=== PATIENT | male | born 1940 | race Caucasian/White ===

== ENCOUNTER 2021-05-17 09:05 | Inpatient (IN) | payer MEDICARE, OTHER ==
[~2021-05-17] VITALS: Ht 188 cm; Wt 93.0 kg
--- NOTE | 2021-05-17 09:05 | NUR ---
BIBRA FROM HOME C/O CHEST PAIN, DIRECTED TO ER BED 1, MONITOR APPLIED AND EKG, AWAITING MD FAGAN.
[2021-05-17 09:20] LABS: BASOPHILS % (AUTO) 0.8 % (0.0-2.0); EOSINOPHILS % (AUTO) 2.8 % (0.0-6.0); HEMATOCRIT 40 % (39-51); HEMOGLOBIN 13.9 g/dL (13.5-17.5); LYMPHOCYTES # (AUTO) 1.8 K/uL (0.8-4.8); LYMPHOCYTES % (AUTO) 35.1 % (20.0-44.0); MEAN CORPUSCULAR HGB CONC 35 g/dl (31.0-36.0); MEAN CORPUSCULAR VOLUME 99 fL (80-96); MONOCYTES # (AUTO) 0.6 K/uL (0.1-1.30); MONOCYTES % (AUTO) 12.5 % (2.0-12.0); NEUTROPHILS # (AUTO) 2.5 K/uL (1.8-8.9); NEUTROPHILS % (AUTO) 48.8 % (43.0-81.0); PLATELET COUNT (AUTO) 152 K/uL (150-450); RED BLOOD CELL COUNT(AUTO) 4.03 MIL/uL (4.5-6.0)
[2021-05-17] MEDS ORDERED: ONDANSETRON HCL/PF 4 MG/2 ML VIAL ONE (09:20)
[2021-05-17] MEDS ORDERED: MORPHINE SULFATE INJ 4 MG/ML DISP.SYRIN ONE (09:21)
[2021-05-17] MEDS ORDERED: ERGO500093 PO ×2 (09:23→09:40)
[2021-05-17] MEDS ORDERED: CELE100C98 PO (09:23)
[2021-05-17] MEDS ORDERED: FURO20TA4 PO (09:23)
[2021-05-17] MEDS ORDERED: OLME20TA23 PO (09:23)
[2021-05-17] MEDS ORDERED: PRAM0.5T11 PO (09:23)
[2021-05-17] MEDS ORDERED: ROSU40TA23 PO (09:23)
[2021-05-17] MEDS ORDERED: ASPI-1420 PO (09:23)
[2021-05-17] MEDS ORDERED: LANS30CA56 PO ×2 (09:23→09:39)
[2021-05-17 09:27] LABS: CARBON DIOXIDE 23 mmol/L (21-32); CHLORIDE 105 mmol/L (98-107); CREATININE 1.1 mg/dL (0.6-1.3); GLUCOSE 122 mg/dL (74-106); POTASSIUM 3.2 mmol/L (3.5-5.1); SODIUM SERUM 140 mmol/L (136-145); UREA NITROGEN, BLOOD 21 mg/dL (7-18)
[2021-05-17] MEDS ORDERED: ONDANSETRON HCL/PF 4 MG/2 ML VIAL IV ONE (09:30)
[2021-05-17] MEDS ORDERED: MORPHINE SULFATE INJ 2 MG/ML DISP.SYRIN IV ONE (09:30)
--- NOTE | 2021-05-17 09:30 | NUR ---
BIB RA 79 FROM HOME CC CP 45 LABORER PIE BAKERY NON RADIATING 4/10 PAIN.
[2021-05-17] MEDS ORDERED: CLOP75TA15 PO (09:39)
[2021-05-17] MEDS ORDERED: METO25TA4 PO (09:39)
--- NOTE | 2021-05-17 09:39 | NUR ---
MOVE SHEET SUBMITTED AND CALLED FOR TELE BED.
--- NOTE | 2021-05-17 09:44 | NUR ---
SEEN BY DOCTOR AND ORDERS CARRIED OUT.
--- NOTE | 2021-05-17 09:46 | NUR ---
[facility] CALLED CHEMIST PHARMACEUTICAL PAGED.
[2021-05-17] MEDS ORDERED: ERGOCALCIFEROL (VITAMIN D 2) 50,000 UNIT CAPSULE PO SCH (10:00)
[2021-05-17] MEDS ORDERED: POTASSIUM CHLORIDE 20 MEQ TAB.PRT.SR PO ONE ×3 (10:00→20:00)
[2021-05-17] MEDS ORDERED: ACETAMINOPHEN 325 MG TABLET PO PRN (10:00)
[2021-05-17] MEDS ORDERED: Z GUARD REMEDY 2 OZ OINT TP PRN ×2 (10:00→12:45)
[2021-05-17] MEDS ORDERED: MORPHINE SULFATE INJ 2 MG/ML DISP.SYRIN IV PRN ×2 (10:00→12:45)
[2021-05-17] MEDS ORDERED: ONDANSETRON HCL/PF 4 MG/2 ML VIAL IVP PRN ×2 (10:00→12:45)
[2021-05-17] MEDS ORDERED: ZOLPIDEM TARTRATE 5 MG TABLET PO PRN ×2 (10:00→12:45)
[2021-05-17] MEDS ORDERED: MAGNESIUM HYDROXIDE 30 ML UDC PO PRN ×2 (10:00→12:45)
[2021-05-17] MEDS ORDERED: MAG HYDROX/AL HYDROX/SIMETH 30 ML UDC PO PRN ×2 (10:00→12:45)
[2021-05-17] MEDS ORDERED: NITROGLYCERIN 0.4 MG/TAB BOTTLE SL PRN ×2 (10:00→12:45)
--- NOTE | 2021-05-17 10:01 | NUR ---
VERBALIZED FEELING BETTER, WAITING FOR RESULTS, SON AT BEDSIDE
--- NOTE | 2021-05-17 10:11 | NUR ---
PATIENT AND SON INFORMED OF POC.
--- NOTE | 2021-05-17 10:18 | NUR ---
LAB CALLED FOR COVID RESULT SPOKE WITH SUDA ETA OF 30MINS
--- NOTE | 2021-05-17 10:30 | NUR ---
GAVE REPORT TO CHARITY GUTIÉRREZ FOR JASPER
--- NOTE | 2021-05-17 10:32 | NUR ---
DR BUTLER AT BEDSIDE WANTS CTA DONE BEFORE PATIENT CAN GO UP
--- NOTE | 2021-05-17 10:41 | NUR ---
covid results negative called stevedoring supervisor for bed
[2021-05-17] MEDS ORDERED: IOHEXOL-350 100 ML VIAL IV ONE (10:45)
[2021-05-17] MEDS ORDERED: IV NS 0.9% 250 ML IV ONE (10:45)
[2021-05-17] MEDS ORDERED: CT SWABBABLE VALVE TRANS SET 1 EA INFUS.SET MC ONE (10:45)
--- NOTE | 2021-05-17 12:02 | NUR ---
F/U CTA RESULT SPOKE WITH [place]
[2021-05-17] MEDS ORDERED: ACETAMINOPHEN 650 MG/20.3 ML UDC ONE (12:16)
[2021-05-17] MEDS ORDERED: ACETAMINOPHEN 325 MG TABLET ONE (12:18)
--- NOTE | 2021-05-17 12:41 | NUR ---
GOT BED 320-2
--- NOTE | 2021-05-17 12:47 | NUR ---
SPEEDOMETER INSPECTORBRAKE MACHINE OPERATOR NOTE RECEIVED PATIENT FROM ER. PATIENT CAME FROM HOME, COMPLAINING OF CHEST PAIN. PATIENT IS A/O X3. YORUBA SPEAKING BUT UNDERSTANDS ARABIC. VITALS 124/70 HR 55 TEMP 97.3 O2 SAT 98%. STABLE ON ROOM AIR - NO SOB OR DISTRESS/DISCOMFORT NOTED. PATIENT STATES NO CHEST PAIN AT THIS TIME. SKIN IS INTACT. IV ACCESS TO RIGHT AC #18 - S/L. EXTERNAL TELE MONITOR READS SINUS KENDRA - 55 TO 60S. PATIENT IS AMBULATORY. BRP. PATIENT ORIENTED TO ROOM. SAFETY MEASURES IN PLACE. CALL LIGHT WITHIN REACH. WILL CONTINUE TO MONITOR.
[2021-05-17 13:30] VITALS: BP 124/70
[2021-05-17 16:00] VITALS: BP 111/64
--- NOTE | 2021-05-17 18:50 | NUR ---
ADON CLOSING NOTE PATIENT CURRENTLY LYING IN BED, AWAKE AND WATCHING TV. ADMIT FROM ER. A/O X3. SPANISH SPEAKING BUT UNDERSTANDS MONGOLIAN WELL. STABLE ON ROOM AIR - NO SOB OR DISTRESS/DISCOMFORT NOTED. PATIENT STATES NO CHEST PAIN AT THIS TIME. IV ACCESS TO RIGHT AC #18 - S/L. EXTERNAL TELE MONITOR READS SINUS KENDRA - 60. PATIENT IS AMBULATORY. BRP. SAFETY MEASURES IN PLACE. CALL LIGHT WITHIN REACH. WILL ENDORSE TO GAS ANALYST NURSE FOR JASPER.
[2021-05-17 20:00] VITALS: BP 101/55
[2021-05-18] VITALS: BP 110/65
[2021-05-18 04:00] VITALS: BP 140/80
--- NOTE | 2021-05-18 06:17 | NUR ---
DROP FORGER HELPER NOTES AWAKE & RESPONSIVE. NOT IN ANY DISTRESS. NO SOB NOTED. DENIES ANY PAIN OR DISCOMFORT AT THIS TIME. ON TELE SR @ 60 WITH IV-HL PATENT & INTACT. CALL LIGHT WITHIN REACH. BED IN LOWEST POSITION. SR UP X 2 FOR SAFETY. WILL ENDORSE TO NEXT SHIFT.
[2021-05-18] MEDS ORDERED: PANTOPRAZOLE 40 MG TABLET.DR PO SCH ×2 (07:30)
--- NOTE | 2021-05-18 07:49 | NUR ---
RN OPENING NOTE PATIENT RECEIVED IN CHAIR AO X 3, ABLE TO RESPONDS ALL STIMULI. NO S/S OF DISTRESS OBSERVED. SKIN IS WARM TO TOUCH, KEEP CLEAN/DRY, INTACT IV SITE. RESPIRATORY EVEN AND UNLABORED ON ROOM AIR. KEEP ELEVATED HOB FOR ENSURE AIRWAY AND ASPIRATION PRECAUTION, ALSO LOWEST BED POSITION FOR SAFETY. CALL LIGHT WITHIN REACH, WILL CONTINUE TO MONITOR.
[2021-05-18 08:28] LABS: BASOPHILS % (AUTO) 0.5 % (0.0-2.0); HEMATOCRIT 40 % (39-51); HEMOGLOBIN 13.7 g/dL (13.5-17.5); LYMPHOCYTES # (AUTO) 1.1 K/uL (0.8-4.8); LYMPHOCYTES % (AUTO) 27.5 % (20.0-44.0); MEAN CORPUSCULAR HGB CONC 35 g/dl (31.0-36.0); MEAN CORPUSCULAR VOLUME 100 fL (80-96); MONOCYTES # (AUTO) 0.3 K/uL (0.1-1.30); MONOCYTES % (AUTO) 6.3 % (2.0-12.0); NEUTROPHILS # (AUTO) 2.5 K/uL (1.8-8.9); NEUTROPHILS % (AUTO) 61.7 % (43.0-81.0); PLATELET COUNT (AUTO) 133 K/uL (150-450); RED BLOOD CELL COUNT(AUTO) 3.97 MIL/uL (4.5-6.0)
[2021-05-18 08:39] LABS: ALBUMIN 3.6 g/dL (3.4-5.0); BILIRUBIN,TOTAL 0.8 mg/dL (0.2-1.0); CALCIUM, SERUM 8.7 mg/dL (8.5-10.1); MAGNESIUM 1.9 mg/dL (1.8-2.4); PHOSPHORUS 2.8 mg/dL (2.5-4.9); POTASSIUM 4.7 mmol/L (3.5-5.1); TOTAL PROTEIN, SERUM 6.8 g/dL (6.4-8.2)
[2021-05-18 08:51] VITALS: BP 130/74
[2021-05-18] MEDS ORDERED: CLOPIDOGREL BISULFATE 75 MG TABLET PO SCH ×2 (09:00)
[2021-05-18] MEDS ORDERED: METOPROLOL SUCCINATE 25 MG TAB.SR.24H PO SCH ×2 (09:00)
[2021-05-18] MEDS ORDERED: ASPIRIN EC 81 MG TABLET.DR PO SCH ×2 (09:00)
--- NOTE | 2021-05-18 10:36 | NUR ---
POTASSIUM LEVEL 3.2 THIS MORNING, NEW ORDER POTASSIUM 20 mEq PO X 1, NOTED AND CARRY OUT. Addendum: 05/18/21 at 1049 by JHONNY FRANCES RN ERROR Addendum: 05/18/21 at 1109 by JHONNY FRANCES RN ERROR
[2021-05-18] MEDS ORDERED: POTASSIUM CHLORIDE 20 MEQ TAB.PRT.SR PO ONE (11:00)
[2021-05-18] MEDS ORDERED: METOPROLOL TARTRATE INJ 5 MG/5 ML AMPUL ONE (13:17)
[2021-05-18] MEDS ORDERED: NITROGLYCERIN 0.4 MG/TAB BOTTLE ONE (13:17)
[2021-05-18] MEDS ORDERED: CT SWABBABLE VALVE TRANS SET 1 EA INFUS.SET MC ONE (13:24)
[2021-05-18] MEDS ORDERED: IOHEXOL-350 100 ML VIAL IV ONE (13:24)
[2021-05-18] MEDS ORDERED: IV NS 0.9% 250 ML IV ONE (13:25)
[2021-05-18] MEDS ORDERED: METOPROLOL TARTRATE INJ 5 MG/5 ML AMPUL IVP PRN (13:30)
[2021-05-18] MEDS ORDERED: IV NS 0.9% 500 ML IV PRN (13:30)
[2021-05-18] MEDS ORDERED: NITROGLYCERIN 0.4 MG/TAB BOTTLE SL ONE (13:30)
[2021-05-18 13:35] VITALS: BP 118/55
--- NOTE | 2021-05-18 16:43 | NUR ---
PATIENT D/C TO HOME, GIVEN DISCHARGE INSTRUCTION TO FAMILY MEMBER AND VERBALLY UNDERSTAND. PATIENT DENIES DISTRESS, IN STABLE CONDITION, REFUSED WHEEL CHAIR.
[2021-05-18] MEDS ORDERED: RIVAROXABAN 15 MG TABLET PO SCH (17:00)
[2021-05-20] MEDS ORDERED: ERGOCALCIFEROL (VITAMIN D 2) 50,000 UNIT CAPSULE PO SCH (09:00)
== END 2021-05-18 16:50 | disposition home or self-care (01) | DRG 303 ==
LOC: ER 09:25 → TELE 12:48
PROVIDERS: ADMIT Nurse Practitioner Acute Care; ATTEND Nurse Practitioner Acute Care
DX: I25.10 Atherosclerotic heart disease of native coronary artery without angina pectoris (principal); J90 Pleural effusion, not elsewhere classified; I10 Essential (primary) hypertension; Z95.5 Presence of coronary angioplasty implant and graft; E66.9 Obesity, unspecified; E87.6 Hypokalemia; R73.9 Hyperglycemia, unspecified; Z68.26 Body mass index [BMI] 26.0-26.9, adult; R06.03 Acute respiratory distress; Z20.822 Contact with and (suspected) exposure to COVID-19
CPT/HCPCS: 36415; 71045-TC; 75574; 80048-TC; 80053-TC; 83735-TC; 83880; 84100-TC; 84484-TC; 85025-TC; 87081-TC; 93307-TC; C9803; G0378; J2270; J2405; J3490; J7050; Q9967